=== PATIENT | female | born 1950 | race Caucasian/White ===

== ENCOUNTER → 2016-12-28 | Outpatient (CLI) | payer OTHER ==
--- NOTE | 2016-12-28 10:18 | RAD ---
Chest, 2 views, 12/28/2016: History: Cough, drainage Comparison is made to a study from 09/01/2015. The heart size and pulmonary vascularity are normal. No pulmonary infiltrates are seen. There is no evidence of pleural fluid. IMPRESSION: No acute cardiopulmonary abnormality is detected.
== END | disposition home or self-care (01) ==
LOC: DXRADRC 07:29
PROVIDERS: ATTEND Physician Assistant Medical
DX: R05 Cough (principal)
CPT/HCPCS: 71020

== ENCOUNTER → 2017-08-18 | Outpatient (CLI) | payer OTHER ==
--- NOTE | 2017-08-18 15:19 | RAD ---
3 views right knee radiograph 08/18/2017 Clinical indication: Fall with right knee pain. Comparison: Right knee radiograph 02/23/2016. Findings: No acute fracture or traumatic malalignment. Joint spaces are maintained. No significant knee joint effusion. Impression: No acute osseous abnormality.
== END | disposition home or self-care (01) ==
LOC: DXRAD 14:50
PROVIDERS: ATTEND Family Medicine
DX: M25.561 Pain in right knee (principal)
CPT/HCPCS: 73562

== ENCOUNTER → 2017-09-12 | Outpatient (CLI) | payer OTHER ==
--- NOTE | 2017-09-12 08:39 | RAD ---
Indication: Cough for less than a day. Congestion. Technique: Two-view chest radiograph was obtained. Comparison is from December 28, 2016. Findings: The lungs are clear. The cardiopulmonary silhouette is within normal limits. There is no pleural effusion. The bony structures are intact. Impression: No acute thoracic findings.
== END | disposition home or self-care (01) ==
LOC: DXRAD 08:04
PROVIDERS: ATTEND Physician Assistant Medical
DX: R05 Cough (principal); R09.89 Other specified symptoms and signs involving the circulatory and respiratory systems
CPT/HCPCS: 71020

== ENCOUNTER → 2018-07-19 | Outpatient (CLI) | payer OTHER ==
--- NOTE | 2018-07-19 15:51 | RAD ---
EXAM: Chest, 2 views. HISTORY: Cough. COMPARISON: 09/12/2017 FINDINGS: 2 views of the chest are obtained. There is no infiltrate, pleural effusion or pneumothorax. The heart is normal in size. IMPRESSION: No acute pulmonary finding. Electronically signed by: Rosa Isela Burns MD (07/19/2018 3:48 PM) [facility]
== END | disposition home or self-care (01) ==
LOC: PMG 14:36
PROVIDERS: ATTEND Family Medicine
DX: R05 Cough (principal)
CPT/HCPCS: 71046

== ENCOUNTER → 2018-09-07 | Outpatient (CLI) | payer OTHER ==
--- NOTE | 2018-09-10 15:11 | RAD ---
DATE: September 07, 2018 EXAM: MAMMO ELINOR SCREENING BILATERAL HISTORY: Screening study. COMPARISON: 2010 and 2016 This study was interpreted with the benefit of Computerized Aided Detection (CAD). 2-D digital mammographic views of both breasts were performed in the CC and MLO projections. 3-D digital tomosynthesis images of both breasts were performed in the CC and MLO projections and reviewed on a computer workstation. FINDINGS: Breast Density: SCATTERED The breast parenchyma shows scattered fibroglandular densities. Breast parenchyma level B.. There are no dominant suspicious masses, suspicious microcalcifications or evidence of architectural distortion. IMPRESSION: No mammographic indicators for malignancy. BI-RADS CATEGORY: 1 NEGATIVE RECOMMENDED FOLLOW-UP: 12M 12 MONTH FOLLOW-UP PQRS compliance statement: Patient information was entered into a reminder system with a target due date September 08, 2019 for the next mammogram. Mammography is a sensitive method for finding small breast cancers, but it does not detect them all and is not a substitute for careful clinical examination. A negative mammogram does not negate a clinically suspicious finding and should not result in delay in biopsying a clinically suspicious abnormality. "Our facility is accredited by the [employer] Mammography [employer]." The patient's breast density may affect the ability of mammography to detect breast cancer. There are 4 categories of breast density, A, B, C and D. Breast density A means that most of the breast tissue is replaced with adipose tissue and therefore is not dense. Breast density B means that the breast tissue is mildly dense and scattered. Breast density C means that the breast tissue is heterogeneously dense. Breast density D means that the breast tissue is very dense. Breast densities especially C and D may decrease the sensitivity of mammography to detect breast cancer. Therefore, the patient may benefit from 3-D breast mammography (3D breast tomography) as a part of their screening mammogram. Insurance may or may not pay for this additional imaging. The patient's breast density based on today's mammogram is category B.
== END | disposition home or self-care (01) ==
LOC: MAMMO 10:47
PROVIDERS: ATTEND Physician Assistant Medical
DX: Z12.31 Encounter for screening mammogram for malignant neoplasm of breast (principal)
CPT/HCPCS: 77063; 77067

== ENCOUNTER → 2019-09-10 | Outpatient (CLI) | payer OTHER ==
--- NOTE | 2019-09-12 08:44 | RAD ---
DATE: 09/10/2019 EXAM: MAMMO ELINOR SCREENING BILATERAL HISTORY: Routine screening COMPARISON: 09/07/2018, 12/12/2016, 09/02/2011, 12/21/2009 This study was interpreted with the benefit of Computerized Aided Detection (CAD). Breast Density: SCATTERED The breast parenchyma shows scattered fibroglandular densities. Breast parenchyma level B. FINDINGS: There are no suspicious calcifications, masses, or distortion. IMPRESSION: Stable BI-RADS CATEGORY: 1 NEGATIVE RECOMMENDED FOLLOW-UP: 12M 12 MONTH FOLLOW-UP PQRS compliance statement: Patient information was entered into a reminder system with a target due date for the next mammogram. Mammography is a sensitive method for finding small breast cancers, but it does not detect them all and is not a substitute for careful clinical examination. A negative mammogram does not negate a clinically suspicious finding and should not result in delay in biopsying a clinically suspicious abnormality. "Our facility is accredited by the [employer] Mammography Program."
== END | disposition home or self-care (01) ==
LOC: MAMMO 14:33
PROVIDERS: ATTEND Physician Assistant Medical
DX: Z12.31 Encounter for screening mammogram for malignant neoplasm of breast (principal)
CPT/HCPCS: 77063; 77067

== ENCOUNTER → 2020-09-08 | Outpatient (CLI) | payer OTHER | LOC: LAB 14:08 | PROVIDERS: ATTEND Physician Assistant Medical | DX: R05 Cough (principal); B97.29 Other coronavirus as the cause of diseases classified elsewhere; Z20.828 Contact with and (suspected) exposure to other viral communicable diseases | CPT/HCPCS: U0003 ==

== ENCOUNTER → 2021-07-19 | Outpatient (CLI) | payer OTHER ==
--- NOTE | 2021-07-19 16:14 | RAD ---
XR SHOULDER_RIGHT 2+ VIEWS 07/19/2021 Reason: SHOULDER INJURY X 1 YR AGO Comparison: None Technique: 3 views of the right shoulder Findings: There is no acute fracture or dislocation. Bone mineralization is within normal limits. Joint spaces are normal. Surrounding soft tissues are normal. Impression: No acute osseous abnormality. Electronically signed by: Virgilio Allen (07/19/2021 4:12 PM) [id number]
== END ==
LOC: RAD 11:47
PROVIDERS: ATTEND Physician Assistant Medical
DX: M25.511 Pain in right shoulder (principal)
CPT/HCPCS: 73030

== ENCOUNTER → 2021-10-26 | Outpatient (CLI) | payer OTHER ==
--- NOTE | 2021-10-26 10:28 | RAD ---
Abdominal and Pelvis CT, Without Contrast: History: Reason: ABD PAIN, CONSTIPATION X4 WEEKS. NORMAL BM X1 WEEK AGO / Spl. Instructions: / Hist ory: Comparison: None. Procedure: Axial images are obtained of the abdomen and pelvis, without IV or oral contrast. Oral Contrast: No Findings: Evaluation of solid organs is limited without contrast. This multiple small stones in the gallbladder but no wall thickening or surrounding inflammation. The appendix is normal. There is moderate sigmoid diverticulosis without surrounding inflammation. The appendix is normal. There is a 3.1 x 2.1 similar hypoattenuating lesion in the left adnexa. Liver: Small cysts. Spleen: Normal. Pancreas: Normal. Adrenal Glands: Normal. Kidneys: Normal. There is no free air or free fluid. There is no lymphadenopathy. The urinary bladder appears normal. There is no pericolonic inflammation identified. Impression: 1. Cholelithiasis without evidence of acute cholecystitis. 2. Cystic lesion in the left adnexa. This is likely an ovarian cyst and could be benign or malignant. Recommend correlation with CA-125 and consider a three-month follow-up ultrasound. End impression PQRS Compliance Statement: One or more of the following individualized dose reduction techniques were utilized for this examinat ion: 1. Automated exposure control 2. Adjustment of the mA and/or kV according to patient size 3. Use of iterative reconstruction technique Electronically signed by: Bartolo Crisostomo III, MD (10/26/2021 10:26 AM) [place] [id number]
== END ==
LOC: CT 09:57
PROVIDERS: ATTEND Physician Assistant Medical
DX: K80.20 Calculus of gallbladder without cholecystitis without obstruction (principal); N83.8 Other noninflammatory disorders of ovary, fallopian tube and broad ligament; K57.30 Diverticulosis of large intestine without perforation or abscess without bleeding; K59.00 Constipation, unspecified
CPT/HCPCS: 74176

== ENCOUNTER → 2021-11-24 | Outpatient (CLI) | payer OTHER ==
--- NOTE | 2021-11-24 15:41 | RAD ---
EXAMINATION: US ABDOMEN OR LOWER BACK LIMITED 11/24/2021 8:48 AM INDICATION: Bloating, abnormal CT TECHNIQUE: Sharp scale and color Doppler ultrasound images of the right upper quadrant were obtained. COMPARISON: CT abdomen pelvis 10/26/2021. FINDINGS: Liver: The liver is normal in size measuring 12 cm in length. Normal hepatic echogenicity. There are 2 anechoic simple cysts measuring up to 2.7 cm in the right hepatic lobe. Gallbladder: The gallbladder is mildly distended. There is cholelithiasis. The gallbladder wall is n ormal in thickness measuring 1.7 mm. Bile ducts: The common bile duct is prominent measuring 7.5 mm the likely normal for age. No intrahep atic biliary duct dilatation. Right kidney: The right kidney measures 8.2 x 5.5 x 3.5 cm. The inferior pole is partially obscured b y bowel gas, limiting evaluation. Normal cortical thickness and echogenicity. No hydronephrosis. Other: Abdominal aorta and inferior vena cava are normal where visualized. The pancreas is normal wh ere visualized. IMPRESSION: 1. Cholelithiasis and mildly distended gallbladder. 2. Simple hepatic cysts measuring up to 2.7 cm. 3. The inferior right renal pole is partially obscured by bowel gas. Electronically signed by: Brenda Marin MD (11/24/2021 3:38 PM) [id number]
== END ==
LOC: US 08:45
PROVIDERS: ATTEND Internal Medicine Gastroenterology
DX: K80.20 Calculus of gallbladder without cholecystitis without obstruction (principal); K76.89 Other specified diseases of liver; K82.8 Other specified diseases of gallbladder; R14.0 Abdominal distension (gaseous); R93.89 Abnormal findings on diagnostic imaging of other specified body structures
CPT/HCPCS: 76705